=== PATIENT | male | born 1945 | race Caucasian/White ===

== ENCOUNTER 2023-01-26 07:51 | Day surgery (SDC) | payer MEDICARE ==
[~2023-01-26] VITALS: Ht 188 cm; Wt 102.9 kg
[2023-01-26] VITALS (12 sets, daily range): BP systolic 125–157; BP diastolic 72–83; PULSE 76–87; RESP 12–14; TEMP 98.3; O2SAT 92–100
[2023-01-26] MEDS ORDERED: glucagon, human recombinant 1mg kit SUBCUT PRN (08:25)
[2023-01-26] MEDS ORDERED: insulin Lispro (HumaLOG) vial - multi-dose SQ SCH (08:25)
[2023-01-26] MEDS ORDERED: diphenhydrAMINE 25mg capsule PO PRN (08:25)
[2023-01-26] MEDS ORDERED: normal saline 1,000 ML IV SCH (08:25)
[2023-01-26] MEDS ORDERED: DEXTROSE 15 GM of carb/4 tabs (each vial/BOTTLE has 4 tablets) PO PRN ×2 (08:25)
[2023-01-26] MEDS ORDERED: nitroGLYCERIN 0.4mg SUBLingual tab SL PRN ×2 (08:25→10:50)
[2023-01-26] MEDS ORDERED: dextrose 50%-water 50ml dispensing syringe IV PRN ×2 (08:25)
[2023-01-26] MEDS ORDERED: LORazepam 0.5 MG tablet PO PRN (08:25)
[2023-01-26] MEDS ORDERED: SIMV-45 PO (08:29)
[2023-01-26] MEDS ORDERED: METF-438 PO (08:29)
[2023-01-26] MEDS ORDERED: PANT40TA54 PO (08:29)
[2023-01-26] MEDS ORDERED: LIRA0.6P2 SQ (08:29)
[2023-01-26] MEDS ORDERED: INSU100V12 (08:29)
[2023-01-26] MEDS ORDERED: LINA5TAB4 PO (08:29)
[2023-01-26] MEDS ORDERED: LOSA50TA64 PO (08:29)
[2023-01-26] MEDS ORDERED: CANA300T PO (08:29)
[2023-01-26] MEDS ORDERED: FLEC100T PO (08:29)
[2023-01-26 08:40] LABS: BASOPHILS # (AUTO) 0.1 X10'3 (0-0.2); BASOPHILS % (AUTO) 0.8 % (0-1); EOSINOPHILS # (AUTO) 0.4 X10'3 (0-0.9); EOSINOPHILS % (AUTO) 4.8 % (0-6); HEMATOCRIT 43.3 % (42.0-52.0); HEMOGLOBIN 13.5 g/dl (14.0-17.9); LYMPHOCYTES # (AUTO) 1.7 X10'3 (1.1-4.8); LYMPHOCYTES % (AUTO) 20.6 % (21-51); MEAN CORPUSCULAR HEMOGLOBIN 23.2 PG (27.0-31.0); MEAN CORPUSCULAR HGB CONC 31.2 g/dL (33.0-36.5); MEAN CORPUSCULAR VOLUME 74.2 FL (78-98); MEAN PLATELET VOLUME 8.5 FL (7.4-10.4); MONOCYTES # (AUTO) 0.7 X10'3 (0-0.9); MONOCYTES % (AUTO) 8.5 % (2-12); NEUTROPHILS # (AUTO) 5.3 X10'3 (1.8-7.7); NEUTROPHILS % (AUTO) 65.3 % (42-75); PLATELET COUNT 309 X10'3 (140-440); RED BLOOD COUNT 5.83 X10'6 (4.70-6.10); RED CELL DISTRIBUTION WIDTH 17.4 % (11.5-14.5); WHITE BLOOD COUNT 8.1 X10'3 (4.5-11.0)
[2023-01-26] MEDS ORDERED: iohexol 350MG/ML 100ml bottle IV ONE (08:41)
[2023-01-26] MEDS ORDERED: iohexol 350 MG/ML 50ML vial IV ONE (08:41)
[2023-01-26] MEDS ORDERED: fentaNYL/PF 50MCG/1 ML 2ML syringe ONE (08:41)
[2023-01-26] MEDS ORDERED: midazolam 1 mg/ML 2ml injection ONE (08:41)
[2023-01-26] MEDS ORDERED: LIDOcaine 1% (10mg/ml)w/preservative inj. 20ml MDV ONE (08:41)
[2023-01-26 08:42] LABS: ALBUMIN 4.1 G/DL (3.4-5.0); ANION GAP 10 (8-16); BLOOD UREA NITROGEN 14 MG/DL (7-18); BUN/CREATININE RATIO 12.5 (10.0-20.0); CALCIUM 9.3 MG/DL (8.5-10.1); CHLORIDE 100 MMOL/L (99-107); CREATININE 1.12 MG/DL (0.60-1.10); GLUCOSE 148 MG/DL (70-104); SODIUM 137 MMOL/L (135-145); TOTAL CARBON DIOXIDE 27.4 MMOL/L (24-32); eCRCL 65 ML/MIN; eGFR 64 ML/MIN
[2023-01-26 08:58] LABS: APTT 28 SECONDS (22-32); PROTHROMBIN TIME 10.3 SECONDS (9.0-12.0)
[2023-01-26] MEDS ORDERED: ASPI-1265 PO (09:04)
[2023-01-26] MEDS ORDERED: ondansetron/PF 4mg/2ml inj IV PRN (10:50)
[2023-01-26] MEDS ORDERED: HYDROcodone/acetaminophen 5mg/325mg tablet PO PRN (10:50)
[2023-01-26] MEDS ORDERED: OXAZEpam 15mg capsule PO PRN (10:50)
[2023-01-26] MEDS ORDERED: normal saline 1000ml 1,000 ML IV SCH (10:50)
[2023-01-26] MEDS ORDERED: HYDROcodone/acetaminophen 10/325mg tab PO PRN (10:50)
[2023-01-26] MEDS ORDERED: HYDROcodone/acetaminophen 10/325mg tab PO ONE (11:05)
[2023-01-26 18:11] LABS: PRO BRAIN NATRIURETIC PEPTIDE < 30 PG/ML (0-450)
[2023-01-26 18:22] LABS: HEMOGLOBIN A1C 7.4 % (4.5-6.2)
[2023-01-26] MEDS ORDERED: insulin glargine (Lantus) pen - multi-dose SQ SCH (21:00)
== END 2023-01-26 17:00 | disposition home or self-care (01) ==
LOC: SSTAY O 07:51
PROVIDERS: ATTEND Internal Medicine Cardiovascular Disease
DX: I25.119 Atherosclerotic heart disease of native coronary artery with unspecified angina pectoris (principal); I10 Essential (primary) hypertension; E11.9 Type 2 diabetes mellitus without complications; E78.5 Hyperlipidemia, unspecified; I48.0 Paroxysmal atrial fibrillation; J44.9 Chronic obstructive pulmonary disease, unspecified; Z98.890 Other specified postprocedural states; Z87.891 Personal history of nicotine dependence; Z79.899 Other long term (current) drug therapy; R06.02 Shortness of breath
CPT/HCPCS: 36415; 71046; 71250; 80048; 82948; 83036; 83880; 85025; 85610; 85730; 93005; 93458; 99152; 99153; J1644; J1815; J2250; J3010; J3490; J7030; Q0163; Q9967; A6258; C1760